=== PATIENT | male | born 1995 | race Caucasian/White ===

== ENCOUNTER 2017-06-02 15:57 | Emergency (ER) | payer OTHER ==
[2017-06-02 16:08] VITALS: BP 114/73; PULSE 88; TEMP 98.2; BMI 25.8
[2017-06-02] MEDS ORDERED: LIDOCAINE HCL 1%, 10 MG/ML (50 mL VIAL) SQ ONE (16:15)
[2017-06-02] MEDS ORDERED: LIDOCAINE HCL 1%, 10 MG/ML (20ML VIAL) ONE (16:21)
--- NOTE | 2017-06-02 16:30 | PDOC ---
History of Present Illness - General Chief Complaint: Injury Stated Complaint: CRUSH INJURY TO LEFT THUMB Time Seen by Provider: 06/02/17 16:05 - History of Present Illness Initial Comments: 06/02/17 16:39 Mr. Beebe is a 21 yo male with no significant PMH who presents for evaluation after dropping a compressor onto his L thumb. He reports minimal pain but reports complete loss of his nail at the scene. No other complaints. Past History - Past Medical History Allergies/Adverse Reactions: Allergies Allergy/AdvReac Type Severity Reaction Status Date / Time No Known Allergies Allergy Unverified 06/02/17 15:59 Home Medications: Ambulatory Orders Cephalexin [Keflex Suspension] 500 mg PO Q6HPO #10 ml 06/02/17 Other medical history: DENIES - Immunization History Immunization Up to Date: Yes - Psycho/Social/Smoking Cessation Hx Anxiety: No Suicidal Ideation: No Smoking History: Never smoked Information on smoking cessation initiated: No Hx Alcohol Use: No Drug/Substance Use Hx: No Substance Use Type: None Review of Systems - Review of Systems Comments:: 06/02/17 16:41 GENERAL/CONSTITUTIONAL: No fever or chills. No weakness. HEAD, EYES, EARS, NOSE AND THROAT: No change in vision. No ear pain or discharge. No sore throat. CARDIOVASCULAR: No chest pain or shortness of breath RESPIRATORY: No cough, wheezing, or hemoptysis. GASTROINTESTINAL: No nausea, vomiting, diarrhea or constipation. GENITOURINARY: No dysuria, frequency, or change in urination. MUSCULOSKELETAL: +Pain at the left thumb where the nail was torn off. SKIN: No rash NEUROLOGIC: No headache, vertigo, loss of consciousness, or change in strength/ sensation. ENDOCRINE: No increased thirst. No abnormal weight change HEMATOLOGIC/LYMPHATIC: No anemia, easy bleeding, or history of blood clots. ALLERGIC/IMMUNOLOGIC: No hives or skin allergy. *Physical Exam - Vital Signs Last Vital Signs Temp Pulse Resp BP Pulse Ox 98.2 F 88 16 114/73 100 06/02/17 15:58 06/02/17 15:58 06/02/17 15:58 06/02/17 15:58 06/02/17 15:58 - Physical Exam Comments: 06/02/17 16:42 GENERAL: Awake, alert, and fully oriented, in no acute distress HEAD: No signs of trauma, normocephalic, atraumatic EYES: PERRLA, EOMI, sclera anicteric, conjunctiva clear ENT: Auricles normal inspection, hearing grossly normal, nares patent, oropharynx clear without exudates. Moist mucosa NECK: Normal ROM, supple, no lymphadenopathy, JVD, or masses LUNGS: No distress, speaks full sentences, clear to auscultation bilaterally HEART: Regular rate and rhythm, normal S1 and S2, no murmurs, rubs or gallops, peripheral pulses normal and equal bilaterally. ABDOMEN: Soft, nontender, normoactive bowel sounds. No guarding, no rebound. No masses EXTREMITIES: +Left first digit nail completely avulsed. Sensation and strength intact. Normal range of motion, no edema. No clubbing or cyanosis. NEUROLOGICAL: Cranial nerves II through XII grossly intact. Normal speech, normal gait, no focal sensorimotor deficits SKIN: Warm, Dry, normal turgor, no rashes or lesions noted. Medical Decision Making - Medical Decision Making 06/02/17 16:44 Mr. Beebe presents for an avulsed L first digit fingernail. Reports minor pain currently. X-ray ordered. Will ring block and clean out; then bandage. 06/02/17 18:06 XR negative for fracture or other pathology. Injury cleaned and single chromic gut suture placed. Finger wrapped and instructions given for care and follow- up. Will D/C to home. *DC/Admit/Observation/Transfer Diagnosis at time of Disposition: Nail avulsion, finger Qualifiers: Encounter type: sequela Qualified Code(s): S61.309S - Unspecified open wound of unspecified finger with damage to nail, sequela - Discharge Dispostion Disposition: HOME Condition at time of disposition: Stable - Patient Instructions Printed Discharge Instructions: DI for Nail Avulsion Injury Additional Instructions: Please follow-up with orthopedics as instructed. Return to ER if any pus, warmth , red streaking or fever symptoms. - Attestations Physician Attestion: 06/02/17 18:11 I, Dr. Jae Thomas, attest that this document has been prepared under my direction and personally reviewed by me in its entirety. I further attest, that it accurately reflects all work, treatment, procedures and medical decision -making performed by me.
--- NOTE | 2017-06-02 17:00 | PDOC ---
Attending Attestation - Resident Resident Name: Jae Thomas - ED Attending Attestation I have performed the following: I have examined & evaluated the patient, The case was reviewed & discussed with the resident, I agree w/resident's findings & plan, Exceptions are as noted - HPI HPI: 06/02/17 16:59 Agree with the resident's HPI as documented in the electronic medical record. - Physicial Exam PE: 06/02/17 16:59 Agree with the resident's physical examination as documented in the electronic medical record. - Medical Decision Making 06/02/17 16:59 21-year-old right-hand dominant male presents the emergency department with a nail avulsion to his left thumb after a crush injury earlier today. The nailbed itself appears to be intact. Differential diagnosis includes but is not limited to: Phalanx fracture, nail avulsion. Plan: 1. Plain films 2. Tetanus status 3. Pain management 4. Observe and reevaluate
[2017-06-02] MEDS ORDERED: DIPHTH,PERTUSS(ACELL),TET 0.5 ML DISP.SYRIN IM ONE (17:21)
[2017-06-02] MEDS ORDERED: ACETAMINOPHEN 650 MG/20.3 ML ORAL SOLUTION (CUPS) PO ONE (18:09)
[2017-06-02] MEDS ORDERED: ACETAMINOPHEN 160 MG/5 ML 473ML BULK BOTTLE ONE (18:13)
== END 2017-06-02 18:19 | disposition home or self-care (01) ==
LOC: FER 15:57
PROC: 0HDQXZZ Extraction of Finger Nail, External Approach (ICD-10-PCS; principal; 2017-06-02)
PROC: 3E0234Z Introduction of Serum, Toxoid and Vaccine into Muscle, Percutaneous Approach (ICD-10-PCS; 2017-06-02)
DX: S61.309A Unspecified open wound of unspecified finger with damage to nail, initial encounter (principal); W31.89XA Contact with other specified machinery, initial encounter; Y93.89 Activity, other specified; Y92.9 Unspecified place or not applicable
CPT/HCPCS: 73140-TC-LT; 90715; 99282-25

== ENCOUNTER 2020-09-02 13:17 | Emergency (ER) | payer OTHER | END 2020-09-02 14:41 | disposition home or self-care (01) | LOC: JVIRT 13:17 | DX: Z11.59 Encounter for screening for other viral diseases (principal) | CPT/HCPCS: C9803; Q3014-GT; U0003 ==